=== PATIENT | female | born 1955 | race Caucasian/White ===

== ENCOUNTER → 2024-05-23 08:45 | Outpatient (REF) | payer MEDICARE, SELFPAY | LOC: CLAB 08:45 | PROVIDERS: ATTENDING PHYSICIAN Surgery | DX: K62.89 Other specified diseases of anus and rectum (principal) | CPT/HCPCS: 88307 ==

== ENCOUNTER → 2024-06-14 07:31 | Outpatient (REF) | payer MEDICARE, SELFPAY | LOC: RAD 07:31 | PROVIDERS: ATTENDING PHYSICIAN Surgery; FAMILY PHYSICIAN Family Medicine | DX: C21.0 Malignant neoplasm of anus, unspecified (principal) | CPT/HCPCS: 71260; 74160; Q9967 ==

== ENCOUNTER → 2024-06-19 12:24 | Outpatient (REF) | payer MEDICARE, SELFPAY | LOC: MRI 3T 12:24 | PROVIDERS: ATTENDING PHYSICIAN Surgery; FAMILY PHYSICIAN Family Medicine | DX: C21.0 Malignant neoplasm of anus, unspecified (principal) | CPT/HCPCS: 72197; A9575 ==

== ENCOUNTER → 2024-07-04 13:32 | Outpatient (REF) | payer MEDICARE, SELFPAY | LOC: SDSPAT 13:32 | PROVIDERS: ATTENDING PHYSICIAN Surgery; FAMILY PHYSICIAN Family Medicine | DX: C21.0 Malignant neoplasm of anus, unspecified (principal) | CPT/HCPCS: 36415; 93005 ==

== ENCOUNTER 2024-07-08 06:14 | Day surgery (SDC) | payer MEDICARE, SELFPAY ==
[2024-07-04 14:12] VITALS: BMI 23.0
--- NOTE | 2024-07-05 12:14 | PTCARENOTE ---
Abn ECG, ECG reviewed by Dr. Donaldson, no request made.
[2024-07-08 06:09] VITALS: BMI 23.0
[2024-07-08 06:22] VITALS: BP 126/77
[2024-07-08] MEDS: TYLENOL 1000 MG PO (06:27)
[2024-07-08] MEDS: NORMOSOL-R/PLASMALYTE-A 1000 IV (06:43)
--- NOTE | 2024-07-08 06:58 | PTCARENOTE ---
Patient came in with labs to be drawn by for her oncologists office. LDH, MAG, COMP and CBC. Reached out to Dr. Sheldon and did not hear back. Then reached out to Dr. Vivas and labs ordered by him for patient.
--- NOTE | 2024-07-08 07:13 | PTCARENOTE ---
Patient is high risk for DVT. Anesthesia Dr. Vivas made aware and no further orders.
[2024-07-08 07:20] LABS: % Basophils 0.7 % (0-2); % Eosinophils 2.1 % (0-6); % Immature Granulocytes 0.1 % (0-0.5); % Lymphocytes 23.4 % (20.5-51.1); % Monocytes 8.7 % (1.7-9.3); Absolute Basophils 0.1 10^3/uL (0-0.2); Absolute Eosinophils 0.1 10^3/uL (0-0.7); Absolute Lymphocytes 1.6 10^3/uL (1.2-3.4); Absolute Monocytes 0.6 10^3/uL (0.1-0.6); Absolute Neutrophils 4.3 10^3/uL (1.4-6.5); Hemoglobin 13.5 g/dL (12.0-16.0); Mean Corp Hgb Conc. 33.8 g/dL (33.0-37.0); Mean Corpuscular Hgb 31.3 pg (27.0-31.0); Mean Corpuscular Volume 92.8 fL (81.0-99.0); Mean Platelet Volume 9.5 fL (7.4-10.4); Nucleated Red Blood Cells % 0 %; Platelet Count 279 10^3/uL (130-400); Red Blood Cell Count 4.31 10^6/uL (4.20-5.40); Red Cell Dist. Width 12.3 % (11.5-14.5); White Blood Cell Count 6.7 10^3/uL (4.8-10.8)
[2024-07-08 07:29] LABS: ALT (SGPT) 28 U/L (0-35); AST (SGOT) 31 U/L (14-36); Albumin 4.3 g/dl (3.5-5.0); Alkaline Phosphatase 102 U/L (38-126); Blood Urea Nitrogen 23 mg/dl (7-17); Calcium 9.6 mg/dl (8.4-10.2); Carbon Dioxide 22 mmol/L (22-30); Chloride 106 mmol/L (98-107); Estimated Creatinine Clearance 49 ml/min; Glucose 108 mg/dl (70-99); LDH 232 U/L (120-246); Magnesium 1.9 mg/dl (1.6-2.3); Potassium 4.3 mmol/L (3.5-5.1); Sodium 137 mmol/L (135-145); Total Bilirubin 0.7 mg/dl (0.2-1.3); eGFR > 60.00
[2024-07-08 08:26] VITALS: BP 103/79
[2024-07-08 08:30] VITALS: BP 116/93
[2024-07-08 08:45] VITALS: BP 130/76
[2024-07-08 09:00] VITALS: BP 127/75
[2024-07-08 09:15] VITALS: BP 124/79
[2024-07-08] MEDS: ROXICODONE 5 MG PO (09:23)
== END 2024-07-08 10:00 | disposition home or self-care (01) ==
LOC: SDS 06:14
PROVIDERS: ATTENDING PHYSICIAN Surgery; FAMILY PHYSICIAN Family Medicine
DX: C21.0 Malignant neoplasm of anus, unspecified (principal)
CPT/HCPCS: 36561; 71045; 76000; 80053; 83615; 83735; 85025; C1788

== ENCOUNTER → 2024-12-19 01:45 | Outpatient (REF) | payer MEDICARE, SELFPAY | LOC: CLAB 01:45 | PROVIDERS: ATTENDING PHYSICIAN Surgery | DX: C21.0 Malignant neoplasm of anus, unspecified (principal) | CPT/HCPCS: 88305 ==